=== PATIENT | male | born 1965 | race Caucasian/White ===

== ENCOUNTER 2020-10-29 06:55 | Outpatient (NON) | payer BC, SELFPAY ==
[2020-10-29 23:29] LABS: SARS-CoV-2 RNA PCR Positive
== END 2020-10-29 06:56 ==
LOC: ANHCOVIDDT 07:08
PROVIDERS: PCP Internal Medicine; Visit Provider Internal Medicine
DX: U07.1 COVID-19 (principal)
CPT/HCPCS: C9803; U0003

== ENCOUNTER 2021-11-28 00:35 | Day surgery (SDC) | payer BC, SELFPAY ==
[2021-11-18 10:49] VITALS: BMI 35.7
--- NOTE | 2021-11-27 15:43 | WPDANESEPP ---
Anes - Eval Pre Procedure Procedure: Operation Date: 11/28/21 07:30 Proposed Procedures p Screening Colonoscopy - Mono Watson MD Date/Time: 11/27/21 15:43 Pre Op Diagnosis: neoplasm screening Patient Data Age: 56 Gender: M Height: 1.88 m Weight: 126.2 kg Allergies Allergy/AdvReac Type Severity Reaction Status Date / Time No Known Allergies Allergy Mild Verified 11/18/21 10:48 Home Medications Medication Instructions Recorded Confirmed Type multivitamin 1 tablet PO DAILY 04/07/21 11/18/21 History amlodipine 10 mg tablet 10 mg PO DAILY 90 Days #90 tablet 05/12/21 11/18/21 Rx aspirin 81 mg tablet,delayed 81 mg PO DAILY #90 tablet 05/12/21 11/18/21 Rx release allopurinol 300 mg tablet 300 mg PO DAILY 90 Days #90 tablet 11/14/21 11/18/21 Rx rosuvastatin 5 mg tablet 5 mg PO QHS #90 tablet 11/19/21 Rx Patient hx anesthesia problems: none Family hx anesthesia problems: none Results Review: All pre-operative results and documents have been reviewed as part of the pre-operative evaluation. [facility], [facility] Past Medical History Medical History Essential (primary) hypertension IFG (impaired fasting glucose) Mixed hyperlipidemia Family History Family History Father Family history of coronary artery disease Social History Social History Years smoked: 10 Smoking status: Former smoker Tobacco type: cigarettes Second hand tobacco smoke exposure: No Alcohol intake: current Drinks per week: 12 Substance use: never Substance use type: does not use Living arrangements: with family Gender identity (if verbalized by the patient): Male Sexual Orientation (if Verbalized by the Patient): Straight or Heterosexual Spiritual care concerns: No Exam Day of Procedure 11/27/21 15:43
--- NOTE | 2021-11-27 16:00 | PM.HPGS ---
History of Present Illness History of Present Illness Consent: Risks, benefits, and alternatives have been discussed and questions answered. Patient agrees to proceed with procedure. Chief complaint: neoplasm screening Narrative: Mariano Suggs is a 56 year old male referred for colon cancer screening Review of Systems Review of Systems: All systems reviewed & are unremarkable except as noted in HPI and below PMFSH Past Medical History Medical History Essential (primary) hypertension IFG (impaired fasting glucose) Mixed hyperlipidemia Family History Family History Father Family history of coronary artery disease Social History Social History Years smoked: 10 Smoking status: Former smoker Tobacco type: cigarettes Second hand tobacco smoke exposure: No Alcohol intake: current Drinks per week: 12 Substance use: never Substance use type: does not use Living arrangements: with family Gender identity (if verbalized by the patient): Male Sexual Orientation (if Verbalized by the Patient): Straight or Heterosexual Spiritual care concerns: No Meds Home Medications and Allergies Home Medications Medication Instructions Recorded Confirmed Type multivitamin 1 tablet PO DAILY 04/07/21 11/18/21 History amlodipine 10 mg tablet 10 mg PO DAILY 90 Days #90 tablet 05/12/21 11/18/21 Rx aspirin 81 mg tablet,delayed 81 mg PO DAILY #90 tablet 05/12/21 11/18/21 Rx release allopurinol 300 mg tablet 300 mg PO DAILY 90 Days #90 tablet 11/14/21 11/18/21 Rx rosuvastatin 5 mg tablet 5 mg PO QHS #90 tablet 11/19/21 11/28/21 Rx Allergies Allergy/AdvReac Type Severity Reaction Status Date / Time No Known Allergies Allergy Mild Verified 11/28/21 06:39 Exam Resp: Auscultation: clear to auscultation bilaterally Cardio: Rate: regular rate Rhythm: regular rhythm GI: GI Palp: Yes Soft to palpation and No Tenderness to palpation present (GI) Assessment and Plan Assessment and plan (1) Screening for colon cancer: Code(s): Z12.11 - Encounter for screening for malignant neoplasm of colon Status: Resolved Assessment and Plan: Colonoscopy with possible biopsy or polypectomy or cautery or injection of substances.
[2021-11-28 06:25] VITALS: BMI 34.2
--- NOTE | 2021-11-28 06:31 | WPDANESEFPP ---
Anes - Eval Final PreProcedure Day of Procedure 11/28/21 06:31 Patient weight: obese Heart: regular rate and rhythm Lungs: clear to auscultation Airway: Mallampati scale class II Neurological: alert and oriented Last oral intake: >/= 8 hours ASA classification: III Emergent: no Anesthetic plan: proceed Anesthesia type and monitoring: general GIVS and standard monitoring Results Review: All pre-operative results and documents have been reviewed as part of the pre-operative evaluation. Informed Consent: The patient's anesthetic plan and its attendant risks and benefits were discussed with the patient/family/POA. Questions were solicited and answers provided to the satisfaction of the patient/family/POA.
[2021-11-28 07:02] VITALS: BP 136/98; PULSE 93; RESP 18; TEMP 36.6; O2SAT 95
[2021-11-28] MEDS: LACTATED RINGERS 1,000 ML 150 ML IV CONT (07:02)
[2021-11-28 08:09] VITALS: BP 144/94; PULSE 78; RESP 25; O2SAT 93
[2021-11-28 08:19] VITALS: BP 124/83; PULSE 79; RESP 23; O2SAT 97
[2021-11-28 08:29] VITALS: BP 152/87; PULSE 82; RESP 22; O2SAT 100
== END 2021-11-28 08:36 | disposition home or self-care (01) ==
PROVIDERS: PCP Family Medicine; Visit Provider Internal Medicine Gastroenterology
PROC: 0DJD8ZZ Inspection of Lower Intestinal Tract, Via Natural or Artificial Opening Endoscopic (ICD-10-PCS; CPT 45378; principal; 2021-11-28 07:30)
DX: Z12.11 Encounter for screening for malignant neoplasm of colon (principal); K57.30 Diverticulosis of large intestine without perforation or abscess without bleeding; D12.4 Benign neoplasm of descending colon; I10 Essential (primary) hypertension; E78.2 Mixed hyperlipidemia; Z79.82 Long term (current) use of aspirin; Z87.891 Personal history of nicotine dependence
CPT/HCPCS: 45385; 88305; J2704; J7120

== ENCOUNTER 2022-08-21 11:19 | Outpatient (CLI) | payer BC, SELFPAY ==
--- NOTE | 2022-08-21 11:38 | ECG_ITS ---
Measurements Intervals [place] Rate: 74 P: 17 CO: 170 QRS: 19 QRSD: 92 T: 0 QT: 381 QTc: 424 Interpretive Statements SINUS RHYTHM BASELINE ARTIFACT NONSPECIFIC ST ABNORMALITY BORDERLINE ECG NO PREVIOUS ECG AVAILABLE FOR COMPARISON Electronically Signed On 08-21-2022 16:49:40 CDT by Maury Pimentel M.D.
== END 2022-08-21 11:20 | disposition home or self-care (01) ==
LOC: ANHSURGERY 11:24
PROVIDERS: PCP Family Medicine; Visit Provider Surgery
DX: K42.9 Umbilical hernia without obstruction or gangrene (principal); E78.2 Mixed hyperlipidemia; I10 Essential (primary) hypertension; Z01.818 Encounter for other preprocedural examination; R94.31 Abnormal electrocardiogram [ECG] [EKG]
CPT/HCPCS: 36415; 86850; 86900; 86901; 93005

== ENCOUNTER 2022-08-26 02:18 | Day surgery (SDC) | payer BC, SELFPAY ==
[2022-08-20 11:48] VITALS: BMI 32.1
--- NOTE | 2022-08-20 11:53 | PC.NURSE ---
Report to the Outpatient Waiting Room, entrance under the green pavilion located off [facility], at time 6:00 on date 08/26/22. Planned Procedure Time: 7:30. Time changes happen often and if your time is changed the preop area will call you the afternoon before. - You and your visitor will be asked to self-screen and do not enter if you have any COVID symptoms. - We encourage only one visitor and NO visitors under age 16 are allowed at this time. Your visitor will receive communication by the phone number that is given day of service. - The patient visitor is requested to social distance or may leave the building when not with patient due to restrictions. - A mask is OPTIONAL within the hospital. Patients may have clear liquids (water, carbonated beverages, clear teas, apple juice) until 3 hours prior to surgery (4:30) with a maximum of 20 ounces. - No food from midnight until time of surgery Take the following medications with a SIP of water the morning of surgery: N/A Medications to discontinue per physician: VITAMINS Date to take last dose: 08/22/22 Please no make-up, nail tuvaluan, hairspray, perfume, deodorant, or body powder the day of surgery. No jewelry (including any body piercings) or valuables the day of surgery, leave them at home. Please take a shower or bath the night before, or the morning of, surgery with an antibacterial soap (HIBICLENS). Wear comfortable, loose fitting clothing. - Jewelry must be removed prior to entering the operating room. Rings and piercings that are not removed may be cut off. - The hospital will not accept responsibility for valuables. - Please leave all valuables, including medications, at home the day of surgery. If you are going home after surgery, a licensed local company flatbed truck driver must drive you home. - NO public transportation without another adult. - We recommend that an adult stay with you for 24 hours following discharge. - We also recommend that you do not drive, make important decision, drink alcoholic beverages, or take any drugs that were not prescribed by your health care provider for at least 24 hours after your discharge time. Follow any additional instructions given to you from your surgeon. If you or anyone in your household have experienced Covid symptoms in the past week, please notify your surgeon or the nurse liaison at the phone number below for possible testing. Telephone instructions given to LUIS MANUEL MADERA and asked if any additional questions and then verbalized understanding. Patient advised to call surgeon office or pre surgery nurse liaison [phone] if any additional questions.
[2022-08-26] VITALS (9 sets, daily range): BP systolic 120–147; BP diastolic 69–89; PULSE 60–84; RESP 12–16; TEMP 36.4–37; O2SAT 94–98; BMI 34.8
[2022-08-26] MEDS: LACTATED RINGERS 1,000 ML 30 ML IV CONT ×2 (06:30→09:42)
--- NOTE | 2022-08-26 06:36 | WPDANESEPPF ---
Anes - Initial Pre Proc Eval Procedure: Operation Date: 08/26/22 07:30 Proposed Procedures p Laparoscopic Umbilical Hernia Repair with Mesh, Davinci Assisted - Henrik Richardson DO Date/Time: 08/26/22 06:36 Surgeon: Henrik Richardson DO Pre Op Diagnosis: umbilical hernia Patient Data Age: 57 Gender: M Height: 1.88 m Weight: 123.1 kg Last Vital Signs Temp 36.4 C L 08/26/22 06:14 Pulse 84 08/26/22 06:14 Resp 16 08/26/22 06:14 BP 147/89 H 08/26/22 06:14 Pulse Ox 98 08/26/22 06:14 O2 Del Method Room Air 08/26/22 06:14 Allergies Allergy/AdvReac Type Severity Reaction Status Date / Time No Known Allergies Allergy Mild Verified 08/20/22 11:46 Home Medications Medication Instructions Recorded Confirmed Type multivitamin 1 tablet PO DAILY 04/07/21 08/26/22 History amlodipine 10 mg tablet 10 mg PO DAILY 90 days #90 tabs 02/11/22 08/20/22 Rx allopurinol 300 mg tablet 300 mg PO DAILY 90 days #90 tabs 05/08/22 08/20/22 Rx aspirin 81 mg tablet,delayed 81 mg PO DAILY #90 tabs 07/07/22 08/20/22 Rx release (Adult Aspirin Regimen) rosuvastatin 5 mg tablet See Rx Instructions .Route 08/03/22 08/20/22 Rx .COMPLEX #90 tabs Patient hx anesthesia problems: none Family hx anesthesia problems: none Results Review: All pre-operative results and documents have been reviewed as part of the pre-operative evaluation. [facility] Past Medical History Medical History Essential (primary) hypertension IFG (impaired fasting glucose) Mixed hyperlipidemia Obesity Surgical History Surgical History History of knee surgery right History of tonsillectomy Family History Family History Father Family history of coronary artery disease Hypertension Social History Social History Years smoked: 10 Smoking status: Former smoker Tobacco type: cigarettes Second hand tobacco smoke exposure: No Additional smoking assessment comments: FORMER [employer] Alcohol intake: current Drinks per week: 14 Substance use: never Substance use type: does not use Living arrangements: with family Additional occupation/education comments: Sales Gender identity (if verbalized by the patient): Male Sexual Orientation (if Verbalized by the Patient): Straight or Heterosexual Spiritual care concerns: No Anes - Eval Final PreProcedure Day of Procedure 08/26/22 06:36 Patient weight: obese Heart: regular rate and rhythm Lungs: clear to auscultation Airway: Mallampati scale class II Neurological: alert and oriented Last oral intake: >/= 8 hours ASA classification: III Emergent: no Anesthesia type and monitoring: general ETT and standard monitoring Results Review: All pre-operative results and documents have been reviewed as part of the pre-operative evaluation. Informed Consent: The patient's anesthetic plan and its attendant risks and benefits were discussed with the patient/family/POA. Questions were solicited and answers provided to the satisfaction of the patient/family/POA.
[2022-08-26] MEDS: ACETAMINOPHEN 500 MG TABLET 1000 MG PO (06:40)
[2022-08-26] MEDS: KETOROLAC 15 MG/ML VIAL (*BKC) IV PUSH (06:40)
--- NOTE | 2022-08-26 07:11 | PM.IMHP ---
H&P: HPI History of Present Illness Date/Time: 08/26/22 07:11 Chief Complaint: umbilical hernia Narrative: 57 yo man presents for umbilical hernia repair. He reports no changes since last seen in office. Review of Systems Review of Systems: All systems reviewed & are unremarkable except as noted in HPI and below Constitutional: Constitutional: Denies chills, Denies fever(s), Denies headache(s) and Denies weight loss Eyes: Eyes: Denies change in vision ENT: Denies dizziness, Denies headache(s), Denies neck mass and Denies throat swelling Cardiovascular: Cardiovascular: Denies chest pain, Denies lightheadedness and Denies dyspnea Respiratory: Respiratory: Denies cough, Denies dyspnea and Denies wheezing Gastrointestinal: Gastrointestinal: Denies abdominal pain, Denies change in bowel habits, Denies nausea and Denies vomiting Genitourinary: Genitourinary: Denies hematuria and Denies dysuria Musculoskeletal: Musculoskeletal: Reports as per HPI Integumentary/Breasts: Skin/Breast: Reports as per HPI Neurologic: Denies dizziness and Denies headache(s) Allergic/Immunologic: Allergic/Immunologic: Denies throat swelling and Denies wheezing [facility] Past Medical History Medical History Essential (primary) hypertension IFG (impaired fasting glucose) Mixed hyperlipidemia Obesity Surgical History Surgical History History of knee surgery right History of tonsillectomy Family History Family History Father Family history of coronary artery disease Hypertension Social History Social History Years smoked: 10 Smoking status: Former smoker Tobacco type: cigarettes Second hand tobacco smoke exposure: No Additional smoking assessment comments: FORMER [employer] Alcohol intake: current Drinks per week: 14 Substance use: never Substance use type: does not use Living arrangements: with family Additional occupation/education comments: Sales Gender identity (if verbalized by the patient): Male Sexual Orientation (if Verbalized by the Patient): Straight or Heterosexual Spiritual care concerns: No Meds Home Medications and Allergies Home Medications Medication Instructions Recorded Confirmed Type multivitamin 1 tablet PO DAILY 04/07/21 08/26/22 History amlodipine 10 mg tablet 10 mg PO DAILY 90 days #90 tabs 02/11/22 08/20/22 Rx allopurinol 300 mg tablet 300 mg PO DAILY 90 days #90 tabs 05/08/22 08/20/22 Rx aspirin 81 mg tablet,delayed 81 mg PO DAILY #90 tabs 07/07/22 08/20/22 Rx release (Adult Aspirin Regimen) rosuvastatin 5 mg tablet See Rx Instructions .Route 08/03/22 08/20/22 Rx .COMPLEX #90 tabs Allergies Allergy/AdvReac Type Severity Reaction Status Date / Time No Known Allergies Allergy Mild Verified 08/20/22 11:46 Vital Signs Vital Signs - 24 hr 08/26/22 06:14 Temperature 36.4 C L Pulse Rate 84 Respiratory Rate 16 Blood Pressure 147/89 H Pulse Oximetry 98 Oxygen Delivery Room Air Exam Const: General: no acute distress and alert Orientation/consciousness: patient oriented x3 HENMT: Head: normocephalic and atraumatic Ears: hearing grossly normal bilaterally Face/Nose/Sinus: Normal nares present Mouth: Yes Normal oral and palatal mucosa present Eyes: Periorbital: periorbital findings normal Sclera: sclerae normal EOM: EOMs intact bilaterally Neck: Neck: normal visual inspection, no lymphadenopathy and trachea midline Chest: Chest palpation & inspection: normal inspection of the chest Resp: Effort & Inspection: normal respiratory effort Auscultation: clear to auscultation bilaterally Cardio: Jugular venous distension: no JVD Rate: regular rate Rhythm: regular rhythm Heart sounds: S1 normal heart sound present and S2 normal
--- NOTE | 2022-08-26 07:13 | WPDHPUPDATE1 ---
History and Physical Update Update Date/Time: 08/26/22 07:13 History and Physical has been reviewed, including an updated exam of the patient. There are NO changes in the patient's condition. Risks, benefits, and alternatives have been discussed and questions answered. Patient agrees to proceed with procedure.
[2022-08-26] MEDS: ceFAZolin 3 GM/D5W 100 ML 100 ML IVPB (07:28)
--- NOTE | 2022-08-26 09:29 | W.PM.PROC2 ---
Procedure Note - Detailed Date of Procedure 08/26/22 Pre-op Diagnosis umbilical hernia Post-op Diagnosis Same Procedure Performed Laparoscopic Umbilical Hernia Repair with Mesh, da Akhil assisted Surgeon Henrik Richardson DO Anesthesia General and Local (Exparel) Indications This is a 57-year-old man who presented with a bulge at his umbilicus that he noticed about 1 year ago. He has noticed that it increased in size and he is having some tenderness with activity. He was found to have a 1-2 cm umbilical hernia on exam. Discussions made with the patient about treatment options and decision was made to proceed with robotic assisted laparoscopic umbilical hernia repair with mesh. Findings Laparoscopic umbilical hernia repair was performed. The patient was found to have a 1.5 cm umbilical hernia containing preperitoneal fat. A robotic transabdominal preperitoneal approach was utilized for repair. A preperitoneal pocket was created and the hernia sac and preperitoneal fat was reduced from within the hernia defect. The fascial edges of the hernia were closed using an 0 Stratafix running absorbable suture. A 15 cm x [address] mesh was then placed within the preperitoneal pocket and secured to the abdominal wall using 3-0 Vicryl simple interrupted sutures. No specimens were obtained for pathology. Description of Procedure Procedure as well as risks, benefits, and alternatives were discussed with the patient. Written consent was obtained and placed in chart prior to procedure. Patient was brought back to surgical suite. He was placed supine on operating table. Time-out was done to confirm patient and procedure. He was then intubated by the anesthesia department. A bump was placed under his left hip, and the bed was flexed slightly to extend the space between his costal margin and iliac crest. His abdomen was prepped and draped in sterile fashion using chlorhexidine prep. A 5 millimeter incision was made in the left upper quadrant, and a 5 millimeter Optiview trocar was advanced through the abdominal layers under direct visualization. Once inside the abdominal cavity, carbon dioxide insufflation was used to create a pneumoperitoneum. His abdomen was inspected. An 8 millimeter incision was made in the left lower quadrant, and an 8 millimeter robotic trocar was placed under direct visualization. Another 8 millimeter incision was made in the left lateral abdomen, and an 8 millimeter robotic trocar was placed under direct visualization. Exparel was infiltrated along the lateral abdominal sanchez to perform a transversus abdominis plane block bilaterally. The 5 millimeter port was removed, the incision was extended to 12 millimeters, and a 12 millimeter air seal port was placed under direct visualization. A John-Burr cone was also used to place an 0-Vicryl simple interrupted suture at this trocar site. The robotic arms were brought up to the patient's bedside and secured to the ports. The camera and instruments were inserted, and I then moved over to the robotic console and took control of the camera and instruments. After careful thorough inspection of the abdominal cavity, I began my dissection at the hernia. A preperitoneal plane was created on along the left lateral abdominal wall using scissors with electrocautery. The preperitoneal pocket was carefully dissected to the midline and then the hernia sac was reduced and the dissection was then carried out to the right lateral abdominal wall. I then measured the hernia size. The hernia measured 1.5 cm. The fascia was closed using an 0-Stratafix running suture in a vertical fashion. A 15 cm x [address] mesh was then placed within the preperitoneal pocket. This was oriented vertically with the mesh centered on the hernia defect. The mesh was then secured at the 4 corners and center of the mesh using 3-0 Vicryl simple interrupted sutures. The peritoneum was then closed over the mesh
[2022-08-26] MEDS: fentaNYL CITRATE INJ (*CRX) 100 MCG/2 ML VIAL 25 MCG IV PUSH ×4 (09:58→10:48)
[2022-08-26] MEDS: ONDANSETRON INJ 4 MG/2 ML VIAL IV PUSH (10:15)
[2022-08-26] MEDS: diphenhydrAMINE HCl INJ 50 MG/ML VIAL 25 MG IV PUSH (11:39)
[2022-08-26] MEDS: oxyCODONE HCL (*CRX) 5 MG TAB IR PO (11:52)
== END 2022-08-26 12:20 | disposition home or self-care (01) ==
PROVIDERS: PCP Family Medicine; Visit Provider Surgery
PROC: (CPT 49652; principal; 2022-08-26 07:30)
DX: K42.9 Umbilical hernia without obstruction or gangrene (principal); I10 Essential (primary) hypertension; E78.2 Mixed hyperlipidemia; Z79.82 Long term (current) use of aspirin; E66.9 Obesity, unspecified; Z68.34 Body mass index [BMI] 34.0-34.9, adult; Z87.891 Personal history of nicotine dependence
CPT/HCPCS: 49652; S2900; A9270; C1781; C9290; J0330; J0690; J1100; J1170; J1200; J1885; J2250; J2405; J2704; J2710; J3010; J7120

== ENCOUNTER 2024-10-20 09:16 | Outpatient (CLI) | payer BC, SELFPAY ==
[2024-10-20 10:09] LABS: Influenza A QL RT-PCR Negative (Negative); Influenza B QL RT-PCR Negative (Negative); RSV RNA, RT-PCR Negative (Negative); SARS-CoV-2 RNA PCR Negative (Negative)
== END 2024-10-20 09:17 | disposition home or self-care (01) ==
LOC: ANHLAB 09:17
PROVIDERS: PCP Family Medicine; Visit Provider Physician Assistant
DX: R50.9 Fever, unspecified (principal); R05.9 Cough, unspecified; Z20.822 Contact with and (suspected) exposure to COVID-19
CPT/HCPCS: 87637

== ENCOUNTER 2024-11-13 16:19 | Outpatient (CLI) | payer BC, SELFPAY ==
--- NOTE | ~2024-11-13 | XR_ITS ---
EXAMINATION: XR chest 2V DATE: 11/13/2024 16:30 INDICATION: Cough and shortness of breath TECHNIQUE: PA and lateral views of the chest were obtained. COMPARISON: Chest radiograph dated 01/30/2010 FINDINGS: The lungs are clear with no focal airspace opacities, pulmonary edema, pleural effusion or pneumothor ax. The cardiomediastinal silhouette is normal. Visualized bones and soft tissues are unremarkable. IMPRESSION: 1. No acute cardiopulmonary disease. Reviewed, dictated and finalized at location A. [facility]
== END 2024-11-13 16:20 | disposition home or self-care (01) ==
LOC: MICIMG 16:20
PROVIDERS: PCP Family Medicine; Visit Provider Physician Assistant
DX: R05.9 Cough, unspecified (principal); R50.9 Fever, unspecified
CPT/HCPCS: 71046

== ENCOUNTER 2025-03-30 01:29 | Day surgery (SDC) | payer BC, SELFPAY ==
[2025-03-20 11:06] VITALS: BMI 34.4
[2025-03-30 10:15] VITALS: BP 122/101; PULSE 91; RESP 18; TEMP 36.1; O2SAT 98
[2025-03-30] MEDS: LACTATED RINGERS 1,000 ML 150 ML IV CONT (10:25)
--- NOTE | 2025-03-30 11:01 | P.PNAN_ITS ---
Anes - Initial Pre Proc Eval Procedure: Operation Date: 03/30/25 11:30 Proposed Procedures p Screening Colonoscopy - Christopher Wisdom MD Date/Time: 03/30/25 11:01 Surgeon: Christopher Wisdom MD Pre Op Diagnosis: Screening Patient Data Age: 59 Gender: M Height: 1.88 m Weight: 119 kg Last Vital Signs Temp 36.1 C L 03/30/25 10:15 Pulse 91 03/30/25 10:15 Resp 18 03/30/25 10:15 BP 122/101 H 03/30/25 10:15 Pulse Ox 98 03/30/25 10:15 O2 Del Method Room Air 03/30/25 10:15 Allergies Allergy/AdvReac Type Severity Reaction Status Date / Time No Known Allergies Allergy Mild Verified 03/30/25 10:14 Home Medications ?Medication ?Instructions ?Recorded ?Confirmed ?Type multivitamin 1 tablet PO DAILY 04/07/21 03/30/25 History aspirin 81 mg tablet,delayed 81 mg PO DAILY #90 tabs 06/15/24 03/30/25 Rx release (Adult Aspirin Regimen) lisinopril 20 mg tablet 20 mg PO DAILY #90 tabs 07/26/24 03/30/25 Rx amlodipine 10 mg tablet See Rx Instructions .Route 08/03/24 03/30/25 Rx .COMPLEX #90 tabs rosuvastatin 5 mg tablet See Rx Instructions .Route 08/23/24 03/30/25 Rx .COMPLEX #90 tabs finasteride 5 mg tablet 5 mg PO DAILY 12/08/24 03/30/25 History allopurinol 300 mg tablet See Rx Instructions .Route 01/22/25 03/30/25 Rx .COMPLEX #90 tabs tirzepatide (weight loss) 2.5 2.5 mg (0.5 mL) subcut WEEKLY #2 mL 02/26/25 03/20/25 Rx mg/0.5 mL subcutaneous pen injector (Zepbound) Patient hx anesthesia problems: none Family hx anesthesia problems: none Results Review: All pre-operative results and documents have been reviewed as part of the pre- operative evaluation. [facility] Past Medical History Medical History Obesity IFG (impaired fasting glucose) Essential (primary) hypertension Mixed hyperlipidemia Surgical History Surgical History Hx of umbilical hernia repair LAP umb hernia repair w/ mesh Da Akhil assisted on 08/26/22 History of knee surgery right History of tonsillectomy Family History Family History Father Family history of coronary artery disease Hypertension Social History Social History Social History: Years smoked: 10 Smoking status: Former smoker Tobacco type: cigarettes Second hand tobacco smoke exposure: No Alcohol intake: current Drinks per week: 6 Substance use: never Substance use type: does not use Do You Feel Safe in your Home?: Yes Lack of Transportation: No Lack of Food: Never True Current Housing: I Have Housing Concerned About Future Housing: No Difficulty Paying Gas/Electric Bills: No Difficulty Paying for Meds: No Currently Unemployed: No Education: Don't Know Difficulty w/ Childcare or Family Care: No Living arrangements: with family Occupation/Education: occupation Additional occupation/education comments: Sales Gender identity (if verbalized by the patient): Male Sexual Orientation (if Verbalized by the Patient): Straight or Heterosexual Spiritual care concerns: No Anes - Eval Final PreProcedure Day of Procedure 03/30/25 11:01 Patient weight: normal Heart: regular rate and rhythm Lungs: clear to auscultation Airway: Mallampati scale class II Neurological: alert and oriented Last oral intake: >/= 8 hours ASA classification: III Emergent: no Anesthetic plan: proceed Anesthesia type and monitoring: general GIVS and standard monitoring Results Review: All pre-operative results and documents have been reviewed as part of the pre- operative evaluation. Informed Consent: The patient's anesthetic plan and its attendant risks and benefits were discussed with the patient/family/POA. Questions were solicited and answers provided to the satisfaction of the patient/family/POA.
--- NOTE | 2025-03-30 11:40 | PM.IMHP ---
H&P: HPI History of Present Illness Date/Time: 03/30/25 11:40 Chief Complaint: History of colon polyps Narrative: The patient has a history of colonic polyps, the last colonoscopy was 3 years ago. Review of Systems Review of Systems: All systems reviewed & are unremarkable except as noted in HPI and below PMFSH Past Medical History Medical History Obesity IFG (impaired fasting glucose) Essential (primary) hypertension Mixed hyperlipidemia Surgical History Surgical History Hx of umbilical hernia repair LAP umb hernia repair w/ mesh Da Akhil assisted on 08/26/22 History of knee surgery right History of tonsillectomy Family History Family History Father Family history of coronary artery disease Hypertension Social History Social History Social History: Years smoked: 10 Smoking status: Former smoker Tobacco type: cigarettes Second hand tobacco smoke exposure: No Alcohol intake: current Drinks per week: 6 Substance use: never Substance use type: does not use Do You Feel Safe in your Home?: Yes Lack of Transportation: No Lack of Food: Never True Current Housing: I Have Housing Concerned About Future Housing: No Difficulty Paying Gas/Electric Bills: No Difficulty Paying for Meds: No Currently Unemployed: No Education: Don't Know Difficulty w/ Childcare or Family Care: No Living arrangements: with family Occupation/Education: occupation Additional occupation/education comments: Sales Gender identity (if verbalized by the patient): Male Sexual Orientation (if Verbalized by the Patient): Straight or Heterosexual Spiritual care concerns: No Meds Home Medications and Allergies Home Medications ?Medication ?Instructions ?Recorded ?Confirmed ?Type multivitamin 1 tablet PO DAILY 04/07/21 03/30/25 History aspirin 81 mg tablet,delayed 81 mg PO DAILY #90 tabs 06/15/24 03/30/25 Rx release (Adult Aspirin Regimen) lisinopril 20 mg tablet 20 mg PO DAILY #90 tabs 07/26/24 03/30/25 Rx amlodipine 10 mg tablet See Rx Instructions .Route 08/03/24 03/30/25 Rx .COMPLEX #90 tabs rosuvastatin 5 mg tablet See Rx Instructions .Route 08/23/24 03/30/25 Rx .COMPLEX #90 tabs finasteride 5 mg tablet 5 mg PO DAILY 12/08/24 03/30/25 History allopurinol 300 mg tablet See Rx Instructions .Route 01/22/25 03/30/25 Rx .COMPLEX #90 tabs tirzepatide (weight loss) 2.5 2.5 mg (0.5 mL) subcut WEEKLY #2 mL 02/26/25 03/30/25 Rx mg/0.5 mL subcutaneous pen injector (Zepbound) Allergies Allergy/AdvReac Type Severity Reaction Status Date / Time No Known Allergies Allergy Mild Verified 03/30/25 10:14 Vital Signs Vital Signs - 24 hr 03/30/25 10:15 Temperature 97 F L Pulse Rate 91 Respiratory Rate 18 Blood Pressure 122/101 H Pulse Oximetry 98 Oxygen Delivery Room Air Exam Const: General: cooperative and healthy appearing Resp: Effort & Inspection: normal respiratory effort and able to speak in complete sentences Auscultation: clear to auscultation bilaterally Cardio: Rate: regular rate Rhythm: regular rhythm GI: Inspection: normal to inspection GI Palp: No No hepatosplenomegaly present Auscultation: normal bowel sounds Rectal Exam: deferred Skin: General skin exam: normal color Psych: Appearance: grossly normal Mental Status: mental status grossly normal Assessment and Plan Assessment and plan (1) History of colonic polyps: Code(s): Z86.0100 - Personal history of colon polyps, unspecified Status: Acute Assessment and Plan: The patient is deemed a good candidate for the procedure. Consent signed. Will proceed.
[2025-03-30] MEDS: SIMETHICONE ORAL SUSPENSION 20 MG/0.3 ML 30 ML BOTTLE 0.6 ML IRRIGATION (11:49)
[2025-03-30 11:59] VITALS: BP 119/87; PULSE 86; RESP 17; O2SAT 98
[2025-03-30 12:09] VITALS: BP 133/96; PULSE 74; RESP 17; O2SAT 96
[2025-03-30 12:18] VITALS: BP 131/95; PULSE 74; RESP 18; O2SAT 96
== END 2025-03-30 12:30 | disposition home or self-care (01) ==
PROVIDERS: PCP Family Medicine; Referring Provider Internal Medicine Gastroenterology; Visit Provider Internal Medicine Gastroenterology
PROC: 0DJD8ZZ Inspection of Lower Intestinal Tract, Via Natural or Artificial Opening Endoscopic (ICD-10-PCS; CPT 45378; principal; 2025-03-30 11:30)
DX: Z12.11 Encounter for screening for malignant neoplasm of colon (principal); K57.30 Diverticulosis of large intestine without perforation or abscess without bleeding; K64.8 Other hemorrhoids; Z86.0100 Personal history of colon polyps, unspecified; Z87.891 Personal history of nicotine dependence
CPT/HCPCS: 45378; J2003; J2704; J7120